=== PATIENT | female | born 1955 | race Caucasian/White ===

== ENCOUNTER 2020-04-25 08:28 | Outpatient (CLI) | payer MEDICARE, OTHER, SELFPAY ==
--- NOTE | 2020-04-25 08:52 | XR_ITS ---
WS: [id number] Cervical spine, 3 views, 04/25/2020 Clinical Data: CHRONIC NECK PAIN Comparison: Cervical spine, 06/18/2015. Findings: No compression fractures are seen. There is degenerative disc narrowing at C4-C5 and C5-C6 unchanged. There is anterior osteoarthritic spurring of C4 and C5. There is also posterior spurring a t C4-C5 and C5-C6. Osteoarthritic change at the C6-C7 and C7-T1 facet joints remains unchanged. There is no prevertebral soft tissue swelling. The odontoid is unremarkable. The soft tissues of the neck and the lung apices are normal. XR/XR cervical spine 3V* [id number] Impression: 1. No change from prior study. 2. Degenerative disc narrowing at C4-C5 and C5-C6. 3. Osteoarthritis at C4 and C5. 4. Osteoarthritis of the facet joints at C6-C7 and C7-T1.
== END 2020-04-25 08:29 | disposition home or self-care (01) ==
LOC: RAD 08:40
PROVIDERS: PCP Registered Nurse; Visit Provider Registered Nurse
DX: M47.812 Spondylosis without myelopathy or radiculopathy, cervical region (principal)
CPT/HCPCS: 72040

== ENCOUNTER → 2020-10-20 14:05 | Outpatient (BNVA) | payer MEDICARE, OTHER, SELFPAY | PROVIDERS: PCP Registered Nurse; Visit Provider Podiatrist Foot & Ankle Surgery | DX: M25.571 Pain in right ankle and joints of right foot (principal) | CPT/HCPCS: 73610 ==

== ENCOUNTER → 2021-09-26 17:21 | Outpatient (BNVA) | payer MEDICARE, OTHER, SELFPAY | PROVIDERS: PCP Registered Nurse; Visit Provider Nurse Practitioner | DX: N39.0 Urinary tract infection, site not specified (principal) | CPT/HCPCS: 81000 ==

== ENCOUNTER → 2022-06-21 10:39 | Outpatient (BNVA) | payer MEDICARE, OTHER, SELFPAY | PROVIDERS: PCP Registered Nurse; Visit Provider Podiatrist Foot & Ankle Surgery | DX: M19.171 Post-traumatic osteoarthritis, right ankle and foot (principal); T84.84XA Pain due to internal orthopedic prosthetic devices, implants and grafts, initial encounter; Y79.2 Prosthetic and other implants, materials and accessory orthopedic devices associated with adverse incidents; Z96.661 Presence of right artificial ankle joint | CPT/HCPCS: 73610; 99214 ==

== ENCOUNTER 2024-03-31 22:49 | Emergency (ER) | payer MEDICARE, OTHER, SELFPAY ==
[2024-03-31 22:52] VITALS: BP 187/104; PULSE 90; RESP 12; TEMP 36.7; O2SAT 95; BMI 30.9
--- NOTE | 2024-03-31 23:03 | XRR_ITS ---
PROCEDURE INFORMATION: Exam: XR Chest Exam date and time: 03/31/2024 11:26 PM Age: 68 years old Clinical indication: Pain; Patient HX: Chest pressure; Hypertension TECHNIQUE: Imaging protocol: Radiologic exam of the chest. Views: 1 view. COMPARISON: CR XR ribs RT mn 3V w CXR1V [id number] 10/15/2021 9:16 AM FINDINGS: Lungs: Clear, symmetrically inflated lungs. Pleural spaces: No pleural effusion. No pneumothorax. Heart/Mediastinum: Cardiac silhouette is normal in size for technique. Bones/joints: Age appropriate. XR/XR chest 1V portable [id number] IMPRESSION: No acute cardiopulmonary abnormality.
[2024-03-31 23:21] VITALS: BP 222/106; PULSE 82; RESP 22; O2SAT 96; O2SAT 97
--- NOTE | 2024-03-31 23:24 | ECG_ITS ---
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 Measurements Intervals [place] Rate: 79 P: 48 CT: 193 QRS: 2 QRSD: 87 T: 31 QT: 363 QTc: 418 Interpretive Statements SINUS RHYTHM POSSIBLE LEFT ATRIAL ENLARGEMENT [-0.1mV P-WAVE IN V1/V2] POSSIBLE LEFT VENTRICULAR HYPERTROPHY [VOLTAGE CRITERIA PLUS LAE OR QRS WIDENING] No previous ECG available for comparison Electronically Signed On 04-02-2024 18:49:52 CDT by Doroteo Richard M.D. [id number]
[2024-03-31 23:29] LABS: Basophils # 0.1 10^3/uL (0.0-0.1); Basophils % 0.7 %; Eosinophils # 0.1 10^3/uL (0.0-0.8); Eosinophils % 1.7 %; Hematocrit 44.4 % (36-47); Lymphocytes # 2.3 10^3/uL (0.8-4.8); Lymphocytes % 27.6 %; Mean Corpuscular HGB Conc 33.8 g/dL (30-55); Mean Corpuscular Hemoglobin 30.2 pg (27-33); Mean Corpuscular Volume 89.3 fl (85-98); Mean Platelet Volume 9.2 fL (7.4-10.4); Monocytes # 0.7 10^3/uL (0.2-0.9); Monocytes % 8.6 %; Neutrophils # 5.14 10^3/uL (1.8-7.7); Neutrophils % 61.3 %; Nucleated Red Blood Cells % 0 %; Platelet Count 266 10^3/cmm (157-399); Red Blood Count 4.97 10^6/uL (3.85-5.65); Red Cell Distribution Width 14.2 % (12.1-15.1); White Blood Count 8.38 10^3/uL (3.29-11.43)
[2024-03-31 23:42] LABS: INR 0.87 (0.8-1.2)
[2024-03-31 23:43] LABS: Partial Thromboplastin Time 24.8 SECONDS (23.9-36.7)
[2024-03-31 23:49] LABS: Troponin(5th) Baseline 16 ng/L (0-10)
[2024-03-31 23:50] LABS: Alanine Aminotransferase 18 U/L (0-33); Albumin Level 5.1 g/dL (3.5-5.2); Alkaline Phosphatase 83 U/L (35-105); Anion Gap 14.6 (5-19); Aspartate Amino Transferase 23 U/L (0-32); Blood Urea Nitrogen 14 mg/dL (8-23); Calcium 10.4 mg/dL (8.5-10.5); Carbon Dioxide 26 mmol/L (22-29); Chloride 99 mmol/L (98-107); Creatinine Clr Calc Pharmacy 67.6387; Globulin 2.9 g/dL (1.3-4.6); Glomerular Filtration Rate 98.8 mL/min (90-130); Glucose 113 mg/dL (65-115); Osmolality Calculated 283 mOsm/kg (285-295); Potassium 3.6 mmol/L (3.5-5.1); Sodium 136 mmol/L (136-145); Total Bilirubin 0.4 mg/dL (0.15-1.2)
[2024-03-31] MEDS: lidocaine 2% viscous 15 ML, aluminum-mag hydrox-simethicon 30 ML, sucralfate oral liq 1 GM PO (23:53)
[2024-03-31 23:56] VITALS: BP 197/109; PULSE 85; RESP 21; O2SAT 96
[2024-03-31 23:59] LABS: NT Pro B Type Natriuretic Pept 101 pg/mL (0-125)
[2024-04-01] VITALS (40 sets, daily range): BP systolic 128–182; BP diastolic 76–98; PULSE 77–109; RESP 9–26; O2SAT 92–100
--- NOTE | 2024-04-01 01:03 | ECG_ITS ---
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 Measurements Intervals [place] Rate: 81 P: 47 AR: 196 QRS: 2 QRSD: 89 T: 17 QT: 380 QTc: 442 Interpretive Statements SINUS RHYTHM POSSIBLE LEFT ATRIAL ENLARGEMENT [-0.1mV P-WAVE IN V1/V2] POSSIBLE LEFT VENTRICULAR HYPERTROPHY [VOLTAGE CRITERIA PLUS LAE OR QRS WIDENING] Compared to ECG 03/31/2024 23:24:18 No significant changes Electronically Signed On 04-02-2024 18:58:11 CDT by Doroteo Richard M.D. [id number]
[2024-04-01] MEDS: amlodipine 5 mg Tablet PO (01:14)
[2024-04-01] MEDS: hyDRALAzine 20 mg/mL INJ 1 mL 10 MG IVP (01:14)
[2024-04-01 01:27] LABS: Covid PCR NEGATIVE (Negative); Influenza A NEGATIVE (Negative); Influenza B NEGATIVE (Negative); Respiratory Syncytial Virus Ce NEGATIVE (Negative)
[2024-04-01 01:51] LABS: Troponin 5 2HR 12.84 ng/L (0-10)
[2024-04-01 01:58] LABS: Troponin 5 2HR Delta -3.16 ABS# (0-10)
--- NOTE | 2024-04-01 02:33 | USR_ITS ---
PROCEDURE INFORMATION: Exam: US Abdomen, Limited; Right Upper Quadrant Exam date and time: 04/01/2024 3:43 AM Age: 68 years old Clinical indication: Abdominal pain; Epigastric; Additional info: Epigastric ruq pain TECHNIQUE: Imaging protocol: Real time ultrasound of the abdomen with image documentation. Limited exam focused on the right upper quadrant. COMPARISON: No relevant prior studies available. FINDINGS: Liver: Coarsened echotexture of the liver seen. No masses. Patent main portal vein with normal direction of flow. Gallbladder: Underdistended. No gallstones. No pericholecystic fluid. There is gallbladder wall thickening measuring up to 0.5 cm, which may be accentuated by underdistention. Biliary ducts: Normal. No stones. No dilation. Pancreas: Visualized pancreas is unremarkable. Right kidney: Normal. No mass. No hydronephrosis. US/US gall bladder [id number] IMPRESSION: 1. Coarsened echotexture of the liver, which can be seen with hepatocellular disease. 2. No clear evidence of acute cholecystitis. Further evaluation with HIDA scan should be considered in the adequate clinical setting.
[2024-04-01] MEDS: lidocaine 2% viscous 15 ML, aluminum-mag hydrox-simethicon 30 ML, sucralfate oral liq 1 GM PO (02:37)
[2024-04-01] MEDS: ondansetron 2 mg/ML SDV 2 mL 4 MG IVP (02:52)
[2024-04-01] MEDS: ketorolac 30 mg/mL INJ 15 MG IVP (02:53)
--- NOTE | 2024-04-01 07:25 | W.ED.CHESTPA ---
HPI - Chest Pain General: Chief Complaint: Chest Pain Stated Complaint: slight chest pressure- bp high 210/110 Time Seen by Provider: 03/31/24 23:16 History of Present Illness: 68-year-old female with no prior history of coronary disease. She presents with chest pressure and hypertension at home. Her blood pressure was high despite taking her normal doses of blood pressure medication. Minimal shortness of breath. Minimal nausea. Related Data Home Medications Medication Instructions Recorded Confirmed amlodipine 5 mg tablet 5 mg PO BID 10/20/20 06/21/22 benazepril 20 mg tablet 20 mg PO DAILY 10/20/20 06/21/22 thyroid (pork) 30 mg tablet 30 mg PO DAILY 10/20/20 06/21/22 ([place] Thyroid) Previous Rx's Medication Instructions Recorded [place] AFO #1 ea 10/20/20 amoxicillin 875 mg tablet 875 mg PO BID 7 days #14 tabs 01/24/22 meloxicam 15 mg tablet 15 mg PO DAILY 2 weeks #14 tabs 06/21/22 hydralazine 25 mg tablet 25 mg PO TID #90 tabs 04/01/24 lansoprazole 30 mg capsule,delayed 30 mg PO DAILY #30 caps 04/01/24 release (Prevacid) Allergies Allergy/AdvReac Type Severity Reaction Status Date / Time duloxetine [From Cymbalta] Allergy Mild MOUTH PAIN Verified 06/21/22 10:38 methotrexate Allergy palpatation Verified 06/21/22 10:38 s [facility] ED PFSH: Medical History Chronic pain of right ankle 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 Hypertension Hypothyroidism Instability of right ankle joint Surgical History Hx of total ankle replacement History of ankle fusion History of right ankle joint replacement Social History Smoking and tobacco/nicotine status: never used tobacco/nicotine Alcohol intake: never Substance/Drug Use: never Physical Exam Const: COMMON NORMALS: no acute distress GENERAL APPEARANCE: cooperative; not ill appearing and not frail appearing HENMT: COMMON NORMALS: normocephalic, atraumatic and Normal external nose present HEAD & SCALP: normocephalic and atraumatic FACE & SINUS: normal facial exam and face symmetric NOSE: Normal external nose present Eye: COMMON NORMALS: Equal, round and reactive pupils present and EOMs intact bilaterally PUPIL: Yes Equal, round and reactive pupils present Neck/C-Spine: GENERAL: Yes trachea midline Chest: CHEST: Yes Symmetrical chest wall rise Resp: COMMON NORMALS: normal respiratory effort, No retractions, No use of accessory muscles and clear to auscultation bilaterally AUSCULTATION: clear to auscultation bilaterally Cardio: COMMON NORMALS: regular rate and regular rhythm RATE: regular rate RHYTHM: regular rhythm GI: COMMON NORMALS: Normal to inspection, nondistended, normoactive bowel sounds present OTHER: minimal epigastric tenderness Extremity: COMMON NORMALS: no pedal edema Neuro: CORNEL COMA SCALE: document GCS findings Cornel coma scale eye opening: Spontaneous Cornel coma scale verbal response: Orientated Cornel coma scale motor response: Obey commands Cornel coma scale total score: 15 SENSORY EXAM: Yes extremities (intact) Psych: COMMON NORMALS: speech normal SPEECH: Yes normal speech Skin: COMMON NORMALS: no rashes or lesions noted GENERAL SKIN EXAM: no rashes or lesions noted Course Vital Signs: Vital signs: Vital Signs Temperature 98.1 F 03/31/24 22:52 Pulse Rate 85 04/01/24 04:45 Respiratory Rate 17 04/01/24 04:45 Blood Pressure 162/87 04/01/24 04:45 Pulse Oximetry 94 04/01/24 04:45 Oxygen Delivery Me thod Room Air 03/31/24 23:56 MDM - Chest Pain Medical Decision Making Chest pressure is gone after GI cocktail x 2 here. Blood pressures improved with treatment with medication. No acute ST wave changes on EKG. Laboratory is not remarkable, including 2-hour troponin/delta troponin. GB US shows no definitive signs of cholecystitis. CXR is negative. She will be allowed home for outpatient follow-up. To return for any worsening symptoms. Lab Data 03/31/24 23:24 03/31/24 23:24 Radiology Impressions Chest X-Ray 03/31/24 23:03 IMPRESSION: No acute cardiopulmonary abnormality. Gallbladder Ultrasound 04/01/24 02:33 IMPRESSION: 1. Coarsened echotexture of the liver, which can be seen with hepatocellular disease. 2. No clear evidence of acute cholecystitis. Further evaluation with HIDA scan should be considered in the adequate clinical setting. Laboratory Results WBC 8.38 10^3/uL (3.29-11.43) 03/31/24 23: RBC 4.97 10^6/uL (3.85-5.65) 03/31/24 23: Hgb 15.00 g/dL (11.27-16.99) 03/31/24 23:24 Hct 44.4 % (36-47) 03/31/24 23: MCV 89.3 fl (85-98) 03/31/24 23: MCH 30.2 pg (27-33) 03/31/24 23: MCHC 33.8 g/dL (30-55) 03/31/24 23: RDW 14.2 % (12.1-15.1) 03/31/24: Plt Count 266 10^3/cmm (157-399) 03/31/24 23: MPV 9.2 fL (7.4-10.4) 03/31/24 23: Neut % (Auto) 61.3 % 03/31/24 23:24 Lymph % (Auto) 27.6 % 03/31/24 23:24 [place] % (Auto) 8.6 % 03/31/24 23:24 Eos % (Auto) 1.7 % 03/31/24 23: Baso % (Auto) 0.7 % 03/31/24 23: Neut # (Auto) 5.14 10^3/uL (1.8-7.7) 03/31/24: Lymph # (Auto) 2.3 10^3/uL (0.8-4.8) 03/31/24 23:24 [place] # (Auto) 0.7 10^3/uL (0.2-0.9) 03/31/24 23: Eos # (Auto) 0.1 10^3/uL (0.0-0.8) 03/31/24: Baso # (Auto) 0.1 10^3/uL (0.0-0.1) 03/31/24 23:24 Nucleated RBC % (auto) 0 % 03/31/24 23: Nucleated RBCs # 0.0 /100WBC 03/31/24 23: PT 12.10 SECONDS (12.1-14.9) 03/31/24 23:24 INR 0.87 (0.8-1.2) 03/31/24 23:24 APTT 24.8 SECONDS (23.9-36.7) 03/31/24 23:24 Sodium 136 mmol/L (136-145) 03/31/24 23:24 Potassium 3.6 mmol/L (3.5-5.1) 03/31/24 23:24 Chloride 99 mmol/L (98-107) 03/31/24 23:24 Carbon Dioxide 26 mmol/L (22-29) 03/31/24 23:24 Anion Gap 14.6 (5-19) 03/31/24 23:24 BUN 14 mg/dL (8-23) 03/31/24 23:24 Creatinine 0.6 mg/dL (0.5-0.9) 03/31/24 23:24 GFR Calculation 98.8 mL/min (90-130) 03/31/24 23:24 Glucose 113 mg/dL (65-115) 03/31/24 23:24 Calculated Osmolality 283 mOsm/kg (285-295) L 03/31/24 23:24 Calcium 10.4 mg/dL (8.5-10.5) 03/31/24 23:24 Total Bilirubin 0.4 mg/dL (0.15-1.2) 03/31/24 23:24 AST 23 U/L (0-32) 03/31/24 23:24 ALT 18 U/L (0-33) 03/31/24 23:24 Alkaline Phosphatase 83 U/L (35-105) 03/31/24 23:24 Troponin T Baseline 16 ng/L (0-10) H 03/31/24 23:24 Troponin T 120 Minute 12.84 ng/L (0-10) H 04/01/24 01:25 Delta Troponin T -3.16 ABS# (0-10) L 04/01/24 01:25 NT-Pro-B Natriuret Pep 101 pg/mL (0-125) 03/31/24 23:24 Total Protein 8.0 g/dL (6.6-8.7) 03/31/24 23:24 Albumin 5.1 g/dL (3.5-5.2) 03/31/24 23:24 Globulin 2.9 g/dL (1.3-4.6) 03/31/24 23:24 Coronavirus (PCR) Negative (Negative) 04/01/24 00:00 Influenza A (PCR) Negative (Negative) 04/01/24 00:00 Influenza Type B (PCR) Negative (Negative) 04/01/24 00:00 RSV (PCR) Negative (Negative) 04/01/24 00:00 All radiology interpretation(s) finalized by discharge Discharge Plan Discharge Patient Disposition: Home Clinical Impression: Chest pain Condition: Stable Prescriptions: New Prevacid 30 mg capsule,delayed release(DR/EC) 30 mg PO DAILY Qty: 30 0RF hydralazine 25 mg tablet 25 mg PO TID Qty: 90 0RF No Action amlodipine 5 mg tablet 5 mg PO BID benazepril 20 mg tablet 20 mg PO DAILY thyroid (pork) [[place] Thyroid] 30 mg tablet 30 mg PO DAILY (DME) [place] AFO See Rx Instructions .Route .MEDSUPPLY Qty: 1 0RF Rx Instructions: As directed, custom made by [employer] amoxicillin 875 mg tablet 875 mg PO BID 7 Days Qty: 14 0RF meloxicam 15 mg tablet 15 mg PO DAILY 14 Days Qty: 14 0RF Discharge Orders: Discharge ED (Routine); Ordered 04/01/24 Ordered By: Georges Lance Referrals: Melly You FNP [Primary Care Provider] - 4-7 days Patient Instructions: Chest Pain (ED), Opioid Safety, Pain Management Activity Restrictions/Additional Instructions: Check your blood pressure twice daily, and report numbers to your doctor later this week. If your blood pressure is staying above 150 systolic (the top number), you may need to take your benazepril, or you may take the medication you were prescribed for high blood pressure. Take the Prevacid as prescribed. Return for worsening chest pressure despite treatment, trouble controlling your blood pressure despite treatment, shortness of breath, abdominal pain or vomiting, any other concerning symptoms. Make appointment with your doctor later this week. Coding Level of Care Code ED County Records Management Officer for [facility]ac[facility] Cho
== END 2024-04-01 04:46 | disposition home or self-care (01) ==
PROVIDERS: Emergency Provider Emergency Medicine; PCP Nurse Practitioner Family
DX: R07.9 Chest pain, unspecified (principal); Z11.52 Encounter for screening for COVID-19; I10 Essential (primary) hypertension
CPT/HCPCS: 0241U; 71045; 76705; 80053; 83880; 84484; 85025; 85610; 85730; 93005; 96374; 96375; 99285; J0360; J1885; J2405

== ENCOUNTER → 2025-04-17 10:54 | Outpatient (BNVA) | payer MEDICARE, OTHER, SELFPAY | PROVIDERS: PCP Nurse Practitioner Family; Visit Provider Podiatrist Foot & Ankle Surgery | DX: M19.171 Post-traumatic osteoarthritis, right ankle and foot (principal); M25.571 Pain in right ankle and joints of right foot; Z96.661 Presence of right artificial ankle joint; T84.84XA Pain due to internal orthopedic prosthetic devices, implants and grafts, initial encounter; Y79.2 Prosthetic and other implants, materials and accessory orthopedic devices associated with adverse incidents | CPT/HCPCS: 73610; 99213 ==